=== PATIENT | female | born 1955 | race Caucasian/White ===

== ENCOUNTER 2016-10-06 19:51 | Emergency (ER) | payer SELFPAY ==
[~2016-10-06] VITALS: Ht 170.2 cm; Wt 81.0 kg
[~2016-10-06 19:51] MED LIST: CLIN1CAP5 PO; CLIN1CAP6 PO; NAPR-576 PO; VENTAER INH
[2016-10-06 19:56] VITALS: BP 161/103; PULSE 76; RESP 18; TEMP 97.8; O2SAT 97
[2016-10-06] MEDS ORDERED: VENTAER INH (19:59)
--- NOTE | 2016-10-06 20:06 | PD ---
HPI Chief Complaint: Abdominal Pain Time Seen by Provider: 20:06 Travel History International Travel<30 days: No Contact w/Intl Traveler<30days: No Traveled to known affect area: No History of Present Illness HPI 61-year-old female is brought to the emergency department by EMS for evaluation of urethral pain for 1 day. Patient states that she has burning at her urethra that began earlier this morning. States that she's had this previously and it feels as though she has a urinary tract infection. States that she has tried to drink cranberry juice, water or vinegar but none of these have helped her symptoms. States that she drinks much fluid that she felt very full and was nauseous. Denies any fever, chills, vomiting, diarrhea, constipation, hematuria , vaginal discharge, abdominal pain. Prior abdominal surgeries include section times one. No other complaints. PFSH Past Medical History Asthma: Yes Diminished Hearing: No Hepatitis: Yes (HEP C) Musculoskeletal: Yes Respiratory: Yes (asthma) ?: Not : 1 Para: 1 Past Surgical History Abdominal Surgery: No Cardiac Surgery: No Section: Yes Ear Surgery: No Endocrine Surgery: No Genitourinary Surgery: No Gynecologic Surgery: Yes Oral Surgery: No Thoracic Surgery: No Other Surgery: Yes (C/S,) Social History Alcohol Use: Yes (OCCASIONAL) Tobacco Use: No (never) Substance Use: Yes (marijuana) Allergies-Medications (Allergen,Severity, Reaction): Coded Allergies: Iodine (Verified Allergy, Severe, 10/06/16) Shellfish (Verified Allergy, Severe, 10/06/16) Codeine (Verified Allergy, Mild, BREAKS OUT, 10/06/16) denies Sulfa (Verified Allergy, Mild, SOB, 10/06/16) denies Reported Meds & Prescriptions Reported Meds & Active Scripts Active Bactrim DS (Sulfamethoxazole-Trimethoprim) 800-160 Mg Tab 1 Tab PO BID 10 Days Reported Ventolin Hfa 18 GM Inh (Albuterol Sulfate) 90 Mcg/Act Aer 2 Puff INH Q4H PRN Review of Systems Except as stated in HPI: all other systems reviewed are Neg Physical Exam Narrative GENERAL: Well-nourished and well-developed pleasant female patient in no acute distress. SKIN: Warm and dry. HEAD: Normocephalic and atraumatic. EYES: No injection, drainage, or hyphema noted. PERRLA. EOMI. ENT: No nasal drainage noted. Oropharynx is clear. NECK: Supple and the trachea is midline. CARDIOVASCULAR: Regular rate and rhythm. RESPIRATORY: Breath sounds are equal bilaterally with no accessory muscle use, wheezing, rhonchi, or crackles. GASTROINTESTINAL: Abdomen is soft, non-tender, and nondistended. No rebound tenderness or guarding. MUSCULOSKELETAL: No obvious deformities, swelling, cyanosis, or ecchymosis is present throughout the upper and lower extremities. Patient has full range of motion without any signs of neurovascular compromise. NEUROLOGICAL: Awake, alert, and oriented. Normal speech and gait. Cranial nerves are grossly intact. Data Data Last Documented VS Vital Signs Date Time Temp Pulse Resp B/P Pulse Ox O2 Delivery O2 Flow Rate FiO2 10/06/16 19:56 97.8 76 18 161/103 97 Orders Urinalysis - C+S If Indicated (10/06/16 20:03) Ibuprofen (Motrin) (10/06/16 20:15) Urine Culture (10/06/16 20:00) Sulfamet-Trimeth Ds 800-160 Mg (Bactrim (10/06/16 21:00) Labs Laboratory Tests Test 10/06/16 20:00 Urine Color LIGHT-YELLOW Urine Turbidity CLEAR Urine pH 6.0 Urine Specific [place] 1.002 Urine Protein TRACE mg/dL Urine Glucose (UA) NEG mg/dL Urine Ketones NEG mg/dL Urine Occult Blood MOD Urine Nitrite NEG Urine Bilirubin NEG Urine Urobilinogen LESS THAN 2.0 MG/DL Urine Leukocyte Esterase LARGE Urine RBC 2 /hpf Urine WBC 52 /hpf Urine Squamous Epithelial <1 /hpf Cells Urine Bacteria OCC /hpf Microscopic Urinalysis Comment CULTURE INDICATED MDM Medical Decision Making Medical Screen Exam Complete: Yes Emergency Medical Condition: Yes Differential Diagnosis Urinary tract infection versus urethritis versus cystitis versus bladder stone Narrative Course 61-year-old female is brought to the emergency department for evaluation of burning with urination that began this morning. Patient is afebrile, vital signs are stable. Abdominal examination is benign. Nausea but no vomiting. Symptoms are consistent with urinary tract infection. UA has been ordered and is pending. Patient is administered ibuprofen for pain. Urinalysis shows moderate occult blood, large leukocyte esterase, 52 white blood cells, occasional bacteria. BMR stating that the patient has allergy to sulfa. She is stating that she has no allergy to sulfa and has taken Bactrim in the past without any difficulties. She is requesting Bactrim specifically because his free at [facility] and she does not have any money to pay for any prescriptions. Patient is given her first dose of Bactrim here in the ED and will be discharged with a prescription for the same. Advised follow-up with her PCP. Diagnosis Primary Impression: UTI (urinary tract infection) Qualified Code: N30.01 - Acute cystitis with hematuria Referrals: Primary Care Physician Patient Instructions: General Instructions, Urinary Tract Infection in Women ( ED) Additional Instructions: Drink plenty of water. Take medication as prescribed. Follow-up with your Primary Care Physician as needed. Return to the ED for any acute worsening of symptoms. Scripts Sulfamethoxazole-Trimethoprim (Bactrim DS)800-160 Mg Tab1 Tab PO BID 10 Days Ref 0 Prov:Gonzalo Albert MD 10/06/16 Disposition: 01 DISCHARGE HOME Condition: Stable Katarzyna Tijerina Oct 06, 2016 20:06
[2016-10-06] MEDS ORDERED: IBUPROFEN 800 MG TAB PO ONE (20:15)
[2016-10-06 20:42] LABS: BACTERIA, URINE OCC /hpf; BLOOD, URINE MOD (NEG); GLUCOSE,URINE NEG (NEG); KETONE, URINE NEG (NEG); NITRITE,URINE NEG (NEG); SQUAMOUS EPITHELIAL CELL URINE <1 /hpf (0-5); URINE COLOR LIGHT-YELLOW (YELLW/STRAW)
[2016-10-06 20:43] LABS: COMMENT (UR) CULTURE INDICATED; CULTURE IF INDICATED CULTURE INDICATED
[2016-10-06] MEDS ORDERED: BACT800T5 PO (20:51)
[2016-10-06] MEDS ORDERED: SULFAMETHOXAZOLE-TRIMETHOPRIM DS 800-160 MG TAB PO ONE (21:00)
== END 2016-10-06 22:28 | disposition home or self-care (01) ==
LOC: NEPC 19:51
DX: N30.01 Acute cystitis with hematuria (principal); B96.20 Unspecified Escherichia coli [E. coli] as the cause of diseases classified elsewhere
CPT/HCPCS: 81001; 87077; 87086; 87186; 99283